=== PATIENT | female | born 1980 | race Two or more races ===

== ENCOUNTER 2025-02-01 14:43 | Emergency (ER) | payer OTHER ==
[~2025-02-01] VITALS: Ht 160 cm; Wt 85.7 kg
[2025-02-01] MEDS ORDERED: RISPERDAL2 MG (15:14)
[2025-02-01] MEDS ORDERED: LAMOTRIGINE100 MG (15:15)
[2025-02-01] MEDS ORDERED: ONDANSETRON HCL 2 MG/ML VIAL IV ONE (16:00)
[2025-02-01] MEDS ORDERED: FAMOTIDINE/PF 20 MG/2 ML VIAL IV ONE (16:00)
[2025-02-01] MEDS ORDERED: ONDANSETRON HCL 2 MG/ML VIAL ONE (16:07)
[2025-02-01] MEDS ORDERED: FAMOTIDINE/PF 20 MG/2 ML VIAL ONE (16:07)
[2025-02-01] MEDS ORDERED: 0.9 % SODIUM CHLORIDE 1,000 ML IV ONE (16:15)
[2025-02-01 16:31] LABS: HEMATOCRIT 39.8 % (36.0-45.00); HEMOGLOBIN 13.3 g/dL (12.0-15.00); MEAN CELL VOLUME 81.7 fL (80.00-100.00); MEAN CORPUSCULAR HEMOGLOBIN 27.3 pg (27.00-32.0); MEAN CORPUSCULAR HGB CONC 33.4 g/dl (32.0-36.0); PLATELET COUNT 242 K/uL (150-450); RED BLOOD COUNT 4.88 M/uL (4.00-6.00)
[2025-02-01 18:54] LABS: ALBUMIN 3.8 gm/dL (3.4-5.0); BILIRUBIN TOTAL 0.55 mg/dL (0.3-1.2); CALCIUM 8.5 mg/dL (8.5-10.1); CREATININE SERUM 0.77 mg/dL (0.55-1.02); GFR 81.06; GLOBULINA 3.9 G/DL (2.4-3.5); POTASSIUM 3.02 mEq/L (3.5-5.1); TOTAL PROTEIN 7.7 gm/dL (6.4-8.2); TSH 0.552 uIU/mL (0.358-3.74)
[2025-02-01] MEDS ORDERED: ONDANSETRON ODT4 MG PO (19:28)
[2025-02-01] MEDS ORDERED: PEPCID AC20 MG PO (19:28)
== END 2025-02-01 20:12 | disposition home or self-care (01) ==
LOC: ER 14:43
PROVIDERS: General Practice
DX: K29.70 Gastritis, unspecified, without bleeding (principal); R16.0 Hepatomegaly, not elsewhere classified